=== PATIENT | female | born 1990 | race Asian ===

== ENCOUNTER 2017-06-04 12:11 | Emergency (ER) | payer BC ==
[~2017-06-04] VITALS: Ht 157.5 cm; Wt 63.6 kg
[2017-06-04 13:09] LABS: APPEARANCE,URINE CLEAR (CLEAR); GLUCOSE, URINE (UA) NEGATIVE (NEGATIVE); KETONES,URINE NEGATIVE (NEGATIVE); LEUKOCYTE ESTERASE ,URINE NEGATIVE (NEGATIVE); OCCULT BLOOD,URINE NEGATIVE (NEGATIVE); PROTEIN,URINE NEGATIVE (NEGATIVE)
[2017-06-04 13:11] VITALS: BP 121/69
[2017-06-04 13:22] LABS: RBC,URINE 0-2 /HPF (0-2); SQUAMOUS EPITHELIAL CELL,UR Few /LPF (None Seen); WBC,URINE 0-2 /HPF (0-5)
[2017-06-04] MEDS ORDERED: CefTRIAXone SODIUM 1 GM/VIAL IM ONE (14:30)
[2017-06-04] MEDS ORDERED: LIDOCAINE HCL/PF 1% 2 ML VIAL IM ONE (14:30)
[2017-06-04] MEDS ORDERED: AZITHROMYCIN 250 MG TABLET PO ONE (14:30)
[2017-06-06 04:30] LABS: GC DNA N.A. AMPLIFY Negative (Negative)
== END 2017-06-04 14:43 | disposition home or self-care (01) ==
LOC: EMS 12:12
DX: Z20.2 Contact with and (suspected) exposure to infections with a predominantly sexual mode of transmission (principal); R35.0 Frequency of micturition; Z76.0 Encounter for issue of repeat prescription
CPT/HCPCS: 81001; 84703; 87491; 87591; 96372; 99284; J0696; J3490